=== PATIENT | female | born 1975 | race American Indian/Alaskan Native ===

== ENCOUNTER 2020-11-26 13:15 | Outpatient (CLI) | payer OTHER ==
--- NOTE | 2020-11-26 14:46 | XRay Report ---
LUMBAR SPINE 3 VIEWS INDICATION / CLINICAL INFORMATION: BACK PAIN. COMPARISON: None available. FINDINGS: VERTEBRAE: No acute fracture. No significant malalignment. DISC SPACES / FACET JOINTS:Mild discogenic degenerative change noted at L5-S1. PARASPINAL SOFT TISSUES:No significant abnormality. ADDITIONAL FINDINGS: Prior cholecystectomy. Signer Name: Kristopher Weir MD Signed: 11/26/2020 2:41 PM Workstation Name: [id number]
--- NOTE | 2020-11-26 14:48 | XRay Report ---
CERVICAL SPINE 4 VIEWS INDICATION / CLINICAL INFORMATION: neck PAIN. COMPARISON: None available. FINDINGS: VERTEBRAE: No acute fracture. No significant malalignment. Prior ACDF at C3-C6 with intervertebral di sc spacers. No hardware loosening or failure. DISC SPACES / FACET JOINTS:Intervertebral disc spacers are noted at C3-C6. Moderate discogenic degene rative change noted at C6-C7 with anterior osteophyte. PARASPINAL SOFT TISSUES:No significant abnormality. ADDITIONAL FINDINGS: None. Signer Name: Kristopher Weir MD Signed: 11/26/2020 2:44 PM Workstation Name: [id number]
== END 2020-11-26 13:16 | disposition home or self-care (01) ==
LOC: XRAY 13:15
PROVIDERS: ATTEND Internal Medicine
DX: M51.37 Other intervertebral disc degeneration, lumbosacral region (principal); M50.323 Other cervical disc degeneration at C6-C7 level; I10 Essential (primary) hypertension
CPT/HCPCS: 72040; 72100